=== PATIENT | male | born 1965 | race Caucasian/White ===

== ENCOUNTER 2018-09-29 17:23 | Emergency (ER) | payer MEDICAID, OTHER ==
[~2018-09-29] VITALS: Ht 182.9 cm; Wt 100.2 kg
[2018-09-29 17:33] VITALS: BP 137/85
--- NOTE | 2018-09-29 18:08 | NUR ---
Gem german in [facility] - 09/29/18 at 1809 by DALIA PT AMB TO BED #11
--- NOTE | 2018-09-29 18:10 | NUR ---
PT AMB TO BED 10
--- NOTE | 2018-09-29 18:13 | NUR ---
53Y/M BIB SELF WITH C/O BILATERAL KNEE PAIN; WORSE ON THE RIGHT. PT STATES STARTED 3 MONTHS AGO AND HAS WORSENED. PAIN 8/10, SHARP, INTERMITTENT. NO TRAUMA OR INJURY. - SWELLING, - EDEMA, - DEFORMITY. 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 PT IS AAOX4, VSS, BED DOWN, BEDRAIL UP X 1, ER MD AWARE AND NOTIFIED OF PT STATUS. HX: DENIES RX: ZANE
[2018-09-29] MEDS ORDERED: traMADol 50 MG TAB PO ONE (18:30)
[2018-09-29] MEDS ORDERED: KETOROLAC 60 MG/2 ML VIAL IM ONE (18:30)
--- NOTE | 2018-09-29 18:30 | NUR ---
Patient being evaluated by physician at bedside.
--- NOTE | 2018-09-29 19:09 | NUR ---
Pt report given to JD Ahn. Transfer of care at this time.
--- NOTE | 2018-09-29 19:22 | NUR ---
Patient discharged with v/s stable. Written and verbal after care instructions given and explained. Patient alert, oriented and verbalized understanding of instructions. Ambulatory with steady gait. All questions addressed prior to discharge. ID band removed. Patient advised to follow up with PMD. Rx of Tramadol Hydrochloride, and Meloxicam given. Patient educated on indication of medication including possible reaction and side effects. Opportunity to ask questions provided and answered.
[2018-09-29 20:36] VITALS: BP 128/78
== END 2018-09-29 19:22 | disposition home or self-care (01) ==
LOC: MED 17:23
DX: M17.0 Bilateral primary osteoarthritis of knee (principal); I10 Essential (primary) hypertension
CPT/HCPCS: 73562; 96372; 99283; J1885

== ENCOUNTER 2019-04-06 00:13 | Emergency (ER) | payer MEDICAID ==
[~2019-04-06] VITALS: Ht 172.7 cm; Wt 86.2 kg
[2019-04-06 00:27] VITALS: BP 144/80
--- NOTE | 2019-04-06 00:30 | NUR ---
PT TAKEN TO BED 3
--- NOTE | 2019-04-06 00:40 | NUR ---
54 Y/O MALE C/O BILAT LOWER LEG EDEMA AND 8/10 PAIN. 3+ PITTING EDEMA. WOUNDS. NUMBNESS AND TINGLING. SKIN TEMP NORMAL. REDNESS. NO DRAINAGE. 10/10 PAIN WITH AMBULATION. WHEEL CHAIR ASSISTED FROM PARKING LOT TO LOBBY. VSS. SORES NOTED ON 2ND AND THIRD LEFT TOES. 4 SWOLLEN BUG BITES NOTED ON RIGHT LEG. PT. STATES " I'VE BEEN TOLD IT WAS FROM [employer]". PATIENT STATES THAT HE HAS DIARRHEA. ERMD MADE AWARE OF STATUS. SIDE RAILSX1. HX: HTN RX:DENIES NKDA
--- NOTE | 2019-04-06 00:43 | NUR ---
CT. AT BEDSIDE.
--- NOTE | 2019-04-06 00:48 | NUR ---
SRAVANTHI CRAFT AT BEDSIDE.
[2019-04-06] MEDS ORDERED: FUROSEMIDE 40 MG/4 ML VIAL IVP ONE (01:15)
[2019-04-06 01:18] LABS: BASOPHILS % (AUTO) 0.3 % (0.0-2.0); EOSINOPHILS # (AUTO) 0.1 K/uL (0-0.4); EOSINOPHILS % (AUTO) 1.5 % (0.0-4.0); HEMATOCRIT 40.7 % (36-52); HEMOGLOBIN 13.5 g/dL (12.0-18.0); LYMPHOCYTES # (AUTO) 1.9 K/uL (2.0-11.5); LYMPHOCYTES % (AUTO) 26.4 % (20.5-51.1); MEAN CORPUSCULAR HEMOGLOBIN 30 pg (27-31); MEAN CORPUSCULAR HGB CONC 33 g/dL (33-37); MEAN CORPUSCULAR VOLUME 91.6 fL (80-94); MONOCYTES # (AUTO) 0.6 K/uL (0.8-1.0); MONOCYTES % (AUTO) 8.8 % (1.7-9.3); NEUTROPHILS # (AUTO) 4.7 K/uL (1.8-7.7); PLATELET COUNT (AUTO) 187 K/uL (140-450); RED BLOOD CELL COUNT(AUTO) 4.45 MIL/uL (4.20-6.10); RED CELL DISTRIBUTION WIDTH 13.6 % (11.6-13.7); WHITE BLOOD COUNT (AUTO) 7.4 K/uL (4.8-10.8)
[2019-04-06 01:19] LABS: ANION GAP 11.2 (8-16); CARBON DIOXIDE 26.9 mmol/L (21-32); POTASSIUM 3.1 mmol/L (3.5-5.1)
[2019-04-06] MEDS ORDERED: POTASSIUM CHLORIDE 10 MEQ TABER PO ONE (01:25)
[2019-04-06 01:28] LABS: ALBUMIN 3.5 g/dL (3.4-5.0); TOTAL BILIRUBIN 0.4 mg/dL (0.0-1.0)
--- NOTE | 2019-04-06 01:36 | NUR ---
PATIENT IS SLEEPING AT THIS TIME.
[2019-04-06 02:08] VITALS: BP 148/82
--- NOTE | 2019-04-06 02:08 | NUR ---
Patient discharged with v/s stable. Written and verbal after care instructions given and explained. Patient alert, oriented and verbalized understanding of instructions. Ambulatory with steady gait. All questions addressed prior to discharge. ID band removed. Patient advised to follow up with PMD. Rx of TRAMADOL HYDROCHLORIDE 50MG; BACTRIM DS 800-160MG; POTASSIUM CHLORIDE 9MEQ; KEFLEX 500MG; MOTRIN 800MG; LASIX 40MG given. Patient educated on indication of medication including possible reaction and side effects. Opportunity to ask questions provided and answered.
== END 2019-04-06 02:08 | disposition home or self-care (01) ==
LOC: MED 00:13
DX: L03.032 Cellulitis of left toe (principal); I89.0 Lymphedema, not elsewhere classified; I10 Essential (primary) hypertension
CPT/HCPCS: 36415; 71045; 80053; 83880; 84484; 85025; 93005; 96374; 99284; J1940; Q0092

== ENCOUNTER 2020-06-01 11:51 | Emergency (ER) | payer MEDICAID ==
[~2020-06-01] VITALS: Ht 182.9 cm; Wt 99.8 kg
--- NOTE | 2020-06-01 11:58 | NUR ---
Patient to bed 11. RN evaluating patient at bedside.
[2020-06-01 11:59] VITALS: BP 130/94
--- NOTE | 2020-06-01 11:59 | NUR ---
PATIENT PRESENTS TO ED WITH C/O NUMBNESS FROM WAIST DOWN . PT STATES " I FEEL LIKE I HAVE A BALL OF POOP THAT I CAN'T GET OUT " . DENIES N/V/D; SKIN IS PINK/WARM/DRY; AAOX4 WITH EVEN AND STEADY GAIT; LUNGS CLEAR BL; HR EVEN AND REGULAR; PT DENIES ANY FEVER, CP, SOB, OR COUGH AT THIS TIME; PATIENT STATES PAIN OF 5/10 AT THIS TIME; VSS; PATIENT POSITIONED FOR COMFORT; HOB ELEVATED; BEDRAILS UP X2; BED DOWN. ER MD MADE AWARE OF PT STATUS.
--- NOTE | 2020-06-01 12:38 | NUR ---
RETURNED FROM CT
--- NOTE | 2020-06-01 12:38 | NUR ---
Patient returned from CT scan.
[2020-06-01 13:15] LABS: BASOPHILS # (AUTO) 0.1 K/uL (0.00-0.22); BASOPHILS % (AUTO) 0.8 % (0.0-2.0); EOSINOPHILS # (AUTO) 0.2 K/uL (0-0.4); EOSINOPHILS % (AUTO) 2.8 % (0.0-4.0); HEMATOCRIT 47.7 % (36-52); HEMOGLOBIN 15.8 g/dL (12.0-18.0); LYMPHOCYTES # (AUTO) 1.7 K/uL (2.0-11.5); LYMPHOCYTES % (AUTO) 21.9 % (20.5-51.1); MEAN CORPUSCULAR HEMOGLOBIN 31 pg (27-31); MEAN CORPUSCULAR HGB CONC 33 g/dL (33-37); MEAN CORPUSCULAR VOLUME 91.9 fL (80-94); MONOCYTES # (AUTO) 0.7 K/uL (0.8-1.0); MONOCYTES % (AUTO) 9.6 % (1.7-9.3); NEUTROPHILS % (AUTO) 64.9 % (42.2-75.2); PLATELET COUNT (AUTO) 171 K/uL (140-450); RED BLOOD CELL COUNT(AUTO) 5.19 MIL/uL (4.20-6.10); RED CELL DISTRIBUTION WIDTH 13.3 % (11.6-13.7); WHITE BLOOD COUNT (AUTO) 7.7 K/uL (4.8-10.8)
[2020-06-01 13:34] LABS: ALBUMIN 3.6 g/dL (3.4-5.0); ANION GAP 13.2 (8-16); POTASSIUM 4.2 mmol/L (3.5-5.1); TOTAL BILIRUBIN 0.3 mg/dL (0.0-1.0)
[2020-06-01 15:35] VITALS: BP 130/94
--- NOTE | 2020-06-01 15:35 | NUR ---
Patient discharged with v/s stable. Written and verbal after care instructions given and explained. Patient alert, oriented and verbalized understanding of instructions. Ambulatory with steady gait. All questions addressed prior to discharge. ID band removed. Patient advised to follow up with PMD. Rx of MIRALAX, CEPHALEXIN AND PREDNISONE given. Patient educated on indication of medication including possible reaction and side effects. Opportunity to ask questions provided and answered.
== END 2020-06-01 15:35 | disposition home or self-care (01) ==
LOC: MED 11:51
DX: R20.2 Paresthesia of skin (principal); M48.00 Spinal stenosis, site unspecified; I10 Essential (primary) hypertension
CPT/HCPCS: 36415; 80053; 81002; 85025; 99284

== ENCOUNTER 2022-01-20 20:00 | Emergency (ER) | payer MEDICAID ==
[~2022-01-20] VITALS: Ht 180.3 cm; Wt 103.9 kg
[2022-01-20 20:27] VITALS: BP 161/91
[2022-01-20 20:32] LABS: BASOPHILS % (AUTO) 0.6 % (0.0-2.0); EOSINOPHILS # (AUTO) 0.1 K/uL (0-0.4); EOSINOPHILS % (AUTO) 1.6 % (0.0-4.0); HEMATOCRIT 48.7 % (36-52); HEMOGLOBIN 16.2 g/dL (12.0-18.0); LYMPHOCYTES # (AUTO) 1.4 K/uL (2.0-11.5); LYMPHOCYTES % (AUTO) 19.3 % (20.5-51.1); MEAN CORPUSCULAR HEMOGLOBIN 31 pg (27-31); MEAN CORPUSCULAR HGB CONC 33 g/dL (33-37); MEAN CORPUSCULAR VOLUME 92.4 fL (80-94); MONOCYTES % (AUTO) 13.3 % (1.7-9.3); NEUTROPHILS # (AUTO) 4.8 K/uL (1.8-7.7); NEUTROPHILS % (AUTO) 65.2 % (42.2-75.2); PLATELET COUNT (AUTO) 153 K/uL (140-450); RED BLOOD CELL COUNT(AUTO) 5.27 MIL/uL (4.20-6.10); WHITE BLOOD COUNT (AUTO) 7.4 K/uL (4.8-10.8)
[2022-01-20 20:43] LABS: ANION GAP 10.9 (8-16); POTASSIUM 3.9 mmol/L (3.5-5.1)
[2022-01-20 20:47] LABS: MAGNESIUM 2.4 mg/dL (1.8-2.4); PHOSPHORUS 3.5 mg/dL (2.5-4.9)
--- NOTE | 2022-01-20 21:00 | NUR ---
TO Patti MEJIAS FOLLOWING TRIAGE
[2022-01-20 21:50] VITALS: BP 161/91
--- NOTE | 2022-01-20 21:50 | NUR ---
Patient discharged with v/s stable. Written and verbal after care instructions given and explained. Patient verbalized understanding. Ambulatory with steady gait. All questions addressed prior to discharge. Advised to follow up with PMD.
== END 2022-01-20 21:50 | disposition home or self-care (01) ==
LOC: MED 20:00
DX: R20.2 Paresthesia of skin (principal)
CPT/HCPCS: 36415; 80048; 83735; 84100; 85025; 93970; 99284; Q0092